=== PATIENT | male | born 1955 | race African-American/Black ===

== ENCOUNTER 2016-10-28 15:14 | Emergency (ER) | payer MEDICAID ==
[2016-10-28 15:15] VITALS: BMI 26.8
[2016-10-28 15:45] VITALS: TEMP 97.3
[2016-10-28 16:22] LABS: AUTOMATED BASOPHIL 1.2 % (0-2); AUTOMATED EOSINOPHIL 2.8 % (0-5); AUTOMATED LYMPH 29.1 % (17-44); AUTOMATED NEUTROPHIL 59.9 % (45-76); MPV 8.7 fL (7.4-10.4)
[2016-10-28 16:30] LABS: BLOOD UREA NITROGEN 11 MG/DL (9-20); CALCIUM 8.9 MG/DL (8.4-10.2); CALCULATED OSMOLALITY 266 MOs/Kg (270-290); CHLORIDE 104 mEq/L (98-107); CPK TOTAL WITH POSSIBLE MB 277 IU/L (55-170); GLUCOSE 113 MG/DL (70-99); SODIUM LEVEL 138 mEq/L (137-146); TOTAL PROTEIN 7.7 G/DL (6.3-8.2)
[2016-10-28 16:31] LABS: PARTIAL THROMB. TIME 28.1 SEC (22-35); PT-INR 1.1
[2016-10-28 16:45] LABS: CPKMB 5.6 ng/mL (0-4.5)
[2016-10-28] MEDS ORDERED: LABETALOL 20 MG/4 ML SYRINGE IV ONE (17:16)
[2016-10-28 17:33] LABS: LEUKOCYTES/URINE NEG (NEGATIVE); NITRITE/URINE NEG (NEGATIVE); RBC/URINE 0-2 (0-2); URINE OCCULT BLOOD NEG (NEG/TRACE); WBC/URINE 0-2 (0-2)
--- NOTE | 2016-10-28 17:59 | DIRPT ---
CLINICAL DATA: Shortness of breath for several days. EXAM: PORTABLE CHEST 1 VIEW COMPARISON: 09/09/2012 FINDINGS: Heart size remains at the upper limits of normal. Ectasia thoracic aorta is stable. Both lungs are clear. Hyperinflation again noted. No evidence of pneumothorax or pleural effusion. IMPRESSION: Pulmonary hyperinflation. No active lung disease. Electronically Signed By: Henrik Malone M.D. On: 10/28/2016 17:56
--- NOTE | 2016-10-28 18:23 | EDPRACDOC ---
- General Information Chief Complaint: Generalized Weakness Stated Complaint: WEAKNESS IN LEGS DIZZINESS Time Seen by Provider: 10/28/16 16:51 Information Source: Patient Home Medications: Home Medications Oxycodone HCl/Acetaminophen [Percocet 10-325 mg Tablet] 1 tab PO Q8H PRN Aspirin [Adult Low Dose Aspirin EC] 81 mg PO DAILY #60 tablet. 10/28/16 Metoprolol Tartrate 25 mg PO BID #60 tablet 10/28/16 Allergies/Adverse Reactions: Allergies Allergy/AdvReac Type Severity Reaction Status Date / Time No Known Allergies Allergy Verified 10/28/16 15:46 - History of Present Illness Onset: ON-GOING HPI: C/o intermittent numbness and weakness in both legs x 2 days, and inc urinary freq. Pt ambulates but states that weakness suddenly comes over his legs and he has to slow down or stop and wait for it to pass. Weakness lasts about 10-15 mins and then passes. Hx of 10 yr chronic back pain due to degenration. Hx of GA 2011 with 2 stents placed, HTN, but pt states that his propagation manager Dr Wilson told him to stop taking GA and HTN meds. Last saw cardiology > 1 yr ago. Does not know when last stress test was. Denies incontinence, cp, sob, N/V/ D, cough, sore throat, changes in urine or BM. Symptoms Started: Reports: Gradually Symptoms Description: Constant Weakness: Bilateral: Leg Symptoms: Reports: Numbness, Weak Symptom Severity: Reports: Does not affect activitiy Relevant History of: Reports: GA Associated signs and symptoms:: Reports: None ED Past Medical History - History Reviewed Yes Nurses notes reviewed and agree except as marked - Patient Medical History Cardiac History: Reports: Hypertension, Heart Attack, Hypercholesterolemia GI/ History: Reports: Gastroesophageal Reflux Psychological History: Denies: Depression Systemic History: Denies: Cancer Additional Past Medical History: CHRONIC BACK PAIN - Social Medical History Smoking Status: Heavy tobacco smoker (5 or more cigarettes/day or daily pipe/ cigar) EDM Review of Systems - Review of Systems ROS Negative Except as Marked: Yes All systems reviewed and were negative except as marked Neurological: Numbness, Weakness (bilateral legs) Musculoskeletal: Leg (weakness bilaterally) - Physical Exam Constitutional: No apparent distress, Alert Oriented to: Time, Person, Place Last recorded Vital Signs: Last Vital Signs Temp 97.3 F L 10/28/16 15:43 Pulse 72 10/28/16 18:01 Resp 20 10/28/16 18:01 BP 196/116 H 10/28/16 18:01 Pulse Ox 95 10/28/16 18:01 Oxygen Pulse Oxygen Saturation 95 O2 Device Room Air Oxygen Flow Rate Fraction of Inspired Oxygen ( FIO2) - HEENT Head: Normal Eye Exam: negative: Conjunctival Injection, Scleral Icterus Oropharynx: negative: Drooling TMJ: Normal Nose: No Symptoms Reported Neck: Normal - Respiratory/Cardiovascular Respiratory: Normal - CTA Cardiovascular: Normal - GI Auscultation: Normal Palpation: Normal Tenderness: Non tender - Musculoskeletal Back: Normal Extremities: Normal - Neurologic Orientation: Time, Person, Place Speech: Fluent Coginitive: Normal Affect: Normal Thought: Coherent Perception: Normal - Coordination Finger to Nose Test: Normal Performance - Other Exam Other Exam Findings: Pt able to ambulate without issue. Neuro exam nml: including TIE TAMPER, cerebellar, Romberg. Pulses, sensation, motor fxn intact in bilat lower extremities. - Results 10/28/16 15:49 10/28/16 15:49 WBC 5.8 xk/uL (3.8-10.8) 10/28/16 15:49 RBC 5.48 xM/uL (4.70-6.10) 10/28/16 15:49 Hgb 14.6 g/dL (14.0-18.0) 10/28/16 15:49 Hct 45.0 % (42-52) 10/28/16 15:49 MCV 82 fL (80-94) 10/28/16 15:49 MCH 26.6 pg (27-32) L 10/28/16 15:49 MCHC 32.4 g/dl (33-36) L 10/28/16 15:49 RDW 14.1 % (11.5-14.5) 10/28/16 15:49 Plt Count 260 xk/uL (130-400) 10/28/16 15:49 MPV 8.7 fL (7.4-10.4) 10/28/16 15:49 Neut % (Auto) 59.9 % (45-76) 10/28/16 15:49 Lymph % (Auto) 29.1 % (17-44) 10/28/16 15:49 Warren % (Auto) 7.0 % (3-10) 10/28/16 15:49 Eos % (Auto) 2.8 % (0-5) 10/28/16 15:49 Baso % (Auto) 1.2 % (0-2) 10/28/16 15:49 Absolute Neuts (auto) 3.42 xk/uL (1.7-8.2) 10/28/16 15:49 Absolute Lymphs (auto) 1.68 xk/uL (0.65-4.75) 10/28/16 15:49 PT 11.1 SEC (9.2-11.2) 10/28/16 15:49 INR 1.1 10/28/16 15:49 APTT 28.1 SEC (22-35) 10/28/16 15:49 Sodium 138 mEq/L (137-146) 10/28/16 15:49 Potassium 3.7 mEq/L (3.5-5.1) 10/28/16 15:49 Chloride 104 mEq/L (98-107) 10/28/16 15:49 Carbon Dioxide 25 mMOL/L (22-33) 10/28/16 15:49 Anion Gap 13 mEq/L (8-16) 10/28/16 15:49 BUN 11 MG/DL (9-20) 10/28/16 15:49 Creatinine 0.80 MG/DL (0.66-1.25) 10/28/16 15:49 Estimated GFR (MDRD) > 60 mL/min (>=60) 10/28/16 15:49 Glucose 113 MG/DL (70-99) H 10/28/16 15:49 Calculated Osmolality 266 MOs/Kg (270-290) L 10/28/16 15:49 Calcium 8.9 MG/DL (8.4-10.2) 10/28/16 15:49 Total Bilirubin 0.6 MG/DL (0.2-1.3) 10/28/16 15:49 AST 26 IU/L (17-59) 10/28/16 15:49 ALT 33 IU/L (21-72) 10/28/16 15:49 Alkaline Phosphatase 84 IU/L (50-160) 10/28/16 15:49 Creatine Kinase 277 IU/L (55-170) H 10/28/16 15:49 CK-MB (CK-2) 5.6 ng/mL (0-4.5) H 10/28/16 15:49 Troponin I < 0.01 ng/mL (<.04) 10/28/16 15:49 Fey-[id number]-Ktcmvoprzgl Pept 66 pg/mL (0-900) 10/28/16 15:49 Total Protein 7.7 G/DL (6.3-8.2) 10/28/16 15:49 Albumin 4.4 G/DL (3.5-5.0) 10/28/16 15:49 Urine Color Yellow 10/28/16 17:20 Urine Clarity Clear 10/28/16 17:20 Urine pH 6.0 (5.0-8.0) 10/28/16 17:20 Ur Specific [place] 1.010 (1.003-1.035) 10/28/16 17:20 Urine Protein Neg (NEG/TRACE) 10/28/16 17:20 Urine Glucose (UA) Neg (NEGATIVE) 10/28/16 17:20 Urine Ketones Neg (NEGATIVE) 10/28/16 17:20 Urine Occult Blood Neg (NEG/TRACE) 10/28/16 17:20 Urine Nitrite Neg (NEGATIVE) 10/28/16 17:20 Urine Bilirubin Neg (NEGATIVE) 10/28/16 17:20 Urine Urobilinogen <2.0 MG/DL (0-1) 10/28/16 17:20 Ur Leukocyte Esterase Neg (NEGATIVE) 10/28/16 17:20 Urine RBC 0-2 (0-2) 10/28/16 17:20 Urine WBC 0-2 (0-2) 10/28/16 17:20 Ur Epithelial Cells Occ 10/28/16 17:20 Urine Bacteria Few (NEG/FEW) 10/28/16 17:20 Urine Mucus Occ (NEG/OCC) 10/28/16 17:20 Lab Results 10/28/16 10/28/16 10/28/16 17:20 15:49 15:49 WBC 5.8 RBC 5.48 Hgb 14.6 Hct 45.0 MCV 82 MCH 26.6 L MCHC 32.4 L RDW 14.1 Plt Count 260 MPV 8.7 Neut % (Auto) 59.9 Lymph % (Auto) 29.1 Warren % (Auto) 7.0 Eos % (Auto) 2.8 Baso % (Auto) 1.2 Absolute Neuts (auto) 3.42 Absolute Lymphs (auto) 1.68 PT 11.1 INR 1.1 APTT 28.1 Sodium Potassium Chloride Carbon Dioxide Anion Gap BUN Creatinine Estimated GFR (MDRD) Glucose Calculated Osmolality Calcium Total Bilirubin AST ALT Alkaline Phosphatase Creatine Kinase CK-MB (CK-2) Troponin I [id number] Pept Total Protein Albumin Urine Color Yellow Urine Clarity Clear Urine pH 6.0 Ur Specific [place] 1.010 Urine Protein Neg Urine Glucose (UA) Neg Urine Ketones Neg Urine Occult Blood Neg Urine Nitrite Neg Urine Bilirubin Neg Urine Urobilinogen <2.0 Ur Leukocyte Esterase Neg Urine RBC 0-2 Urine WBC 0-2 Ur Epithelial Cells Occ Urine Bacteria Few Urine Mucus Occ 10/28/16 15:49 WBC RBC Hgb Hct MCV MCH MCHC RDW Plt Count MPV Neut % (Auto) Lymph % (Auto) Warren % (Auto) Eos % (Auto) Baso % (Auto) Absolute Neuts (auto) Absolute Lymphs (auto) PT INR APTT Sodium 138 Potassium 3.7 Chloride 104 Carbon Dioxide 25 Anion Gap 13 BUN 11 Creatinine 0.80 Estimated GFR (MDRD) > 60 Glucose 113 H Calculated Osmolality 266 L Calcium 8.9 Total Bilirubin 0.6 AST 26 ALT 33 Alkaline Phosphatase 84 Creatine Kinase 277 H CK-MB (CK-2) 5.6 H Troponin I < 0.01 [id number] Pept 66 Total Protein 7.7 Albumin 4.4 Urine Color Urine Clarity Urine pH Ur Specific [place] Urine Protein Urine Glucose (UA) Urine Ketones Urine Occult Blood Urine Nitrite Urine Bilirubin Urine Urobilinogen Ur Leukocyte Esterase Urine RBC Urine WBC Ur Epithelial Cells Urine Bacteria Urine Mucus - EKG EKG #1 EKG Time: 16:46 -: Yes EKG interpreted by me Rate: bpm: 84 Rhythm: Other (sinus rhythm) Block: 1 Hypertrophy: None ST: Normal - Diagnostic Imaging Chest Image interpreted by: Radiologist EXAM: PORTABLE CHEST 1 VIEW COMPARISON: 09/09/2012 FINDINGS: Heart size remains at the upper limits of normal. Ectasia thoracic aorta is stable. Both lungs are clear. Hyperinflation again noted. No evidence of pneumothorax or pleural effusion. IMPRESSION: Pulmonary hyperinflation. No active lung disease. Electronically Signed By: Henrik Malone M.D. On: 10/28/2016 17:56 Decision Time to Discharge: 19:44 - Departure Disposition: Home Condition: Stable Final Diagnosis: Claudication Instructions: Peripheral Vascular Disease (ED), Weakness (General) Referrals: None,No Provider [Primary Care Provider] - One Week Ulises Wilson MD [Staff Physician] - One Week Brady Boggs MD [NonStaff] - One Week Prescriptions: New Aspirin [Adult Low Dose Aspirin EC] 81 mg PO DAILY #60 tablet. Metoprolol Tartrate 25 mg PO BID #60 tablet No Action Oxycodone HCl/Acetaminophen [Percocet 10-325 mg Tablet] 1 tab PO Q8H PRN PRN Reason: Pain Additional Instructions: Follow up with your propagation manager for HTN and post GA meds. Take metoprolol and aspirin until you see your propagation manager. Follow up with Dr Boggs Vascular Surgeon for claudication. Return to ED for any new or worsening symptoms.
[2016-10-28 18:47] LABS: CPK TOTAL WITH POSSIBLE MB 256 IU/L (55-170)
[2016-10-28 19:03] LABS: CPKMB 5.1 ng/mL (0-4.5)
[2016-10-28 20:07] VITALS: BP 139/95; PULSE 74
== END 2016-10-28 20:06 | disposition home or self-care (01) ==
LOC: ED 15:14
DX: I73.9 Peripheral vascular disease, unspecified (principal)
CPT/HCPCS: 36415; 71010; 80053; 81001; 82550; 82553; 83880; 84484; 85025; 85610; 85730; 93005; 96374; 99284; J3490